=== PATIENT | female | born 1960 | race Caucasian/White ===

== ENCOUNTER 2017-03-16 08:07 | Day surgery (SDC) | payer BC ==
[2017-03-11 12:04] VITALS: BMI 25.7
[2017-03-16] MEDS ORDERED: PROPOFOL 20 ML ONE ×2 (08:23)
[2017-03-16] MEDS ORDERED: LIDOCAINE HCL/PF 2% SDV 5ML VIAL ONE (08:24)
[2017-03-16 10:44] VITALS: TEMP 97.9
[2017-03-16 11:08] VITALS: BP 119/72; PULSE 62
--- NOTE | 2017-03-19 16:29 | PATH ---
Surgical Pathology Report Patient Name: BRANT STARKS [facility] [place]. Rec. #: [id number] /Age/Gender: 1960 (Age: 56) / F Account: [id number] Location: [facility]-ENDOSCOPY Taken: 03/16/2017 Received: 03/16/2017 Reported: 03/19/2017 Physicians: Davin Starks M.D. Specimen(s) Received A: BX DUODENUM B: BX ANTRUM C: BX ESOPHAGUS D: BX DISTAL LEFT COLON (50CM) Clinical History Barretts esophagus, history of colonic polyp Rule out celiac disease, rule out H. Pylori, rule out Velazquez's esophagus, colonic polyp Final Diagnosis A. DUODENUM, BIOPSY: DUODENAL MUCOSA WITH NO PATHOLOGIC FINDINGS. Note: Features suggestive of celiac disease are not identified in this biopsy. B. ANTRUM, BIOPSY: MILD CHRONIC GASTRITIS. IMMUNOSTAIN IS NEGATIVE FOR H. PYLORI ORGANISMS. C. 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 (SEE NOTE) Note: Case reviewed in intradepartmental consultation with consensus on diagnosis. Case discussed with Dr. Davin Starks on 03/19/17. D. DISTAL LEFT COLON (50CM), BIOPSY: TUBULAR ADENOMA. Electronically Signed Macey Taveras M.D. Gross Description A. Received in formalin, labeled "duodenum" are 2 house, irregular portions of soft tissue averaging 0.4 cm. in greatest dimension. The specimens are submitted in toto in one cassette. B. Received in formalin, labeled "antrum" are 2 house, irregular portions of soft tissue measuring 0.2 and 0.3 cm. in greatest dimension. The specimens are submitted in toto in one cassette. C. Received in formalin, labeled "esophagus" are 3 house, irregular portions of soft tissue ranging from 0.2-0.3 cm. in greatest dimension. The specimens are submitted in toto in one cassette. D. Received in formalin, labeled "distal left (50 cm)" is a house, irregular portion of soft tissue measuring 0.2 cm. in greatest dimension. The specimen is submitted in toto in one cassette. 03/17/201703/17/2017
== END 2017-03-16 11:10 | disposition home or self-care (01) ==
LOC: FASU-ENDO 08:07
PROVIDERS: ATTEND Internal Medicine Gastroenterology
PROC: 0DB48ZX Excision of Esophagogastric Junction, Via Natural or Artificial Opening Endoscopic, Diagnostic (ICD-10-PCS; 2017-03-16)
PROC: 0DBM8ZX Excision of Descending Colon, Via Natural or Artificial Opening Endoscopic, Diagnostic (ICD-10-PCS; principal; 2017-03-16 09:56)
PROC: 0DB98ZX Excision of Duodenum, Via Natural or Artificial Opening Endoscopic, Diagnostic (ICD-10-PCS; 2017-03-16 09:56)
PROC: 0DB68ZX Excision of Stomach, Via Natural or Artificial Opening Endoscopic, Diagnostic (ICD-10-PCS; 2017-03-16 09:56)
DX: Z86.010 Personal history of colon polyps (principal); K57.30 Diverticulosis of large intestine without perforation or abscess without bleeding; D12.4 Benign neoplasm of descending colon; K29.50 Unspecified chronic gastritis without bleeding; K22.70 Barrett's esophagus without dysplasia
CPT/HCPCS: 88305-TC; 88342-TC

== ENCOUNTER 2017-07-27 07:32 | Day surgery (SDC) | payer BC ==
[2017-07-22 15:24] VITALS: BMI 27.6
[2017-07-27] MEDS ORDERED: PROPOFOL 20 ML ONE (07:36)
[2017-07-27] MEDS ORDERED: LIDOCAINE HCL/PF 2% SDV 5ML VIAL ONE (07:37)
[2017-07-27 09:50] VITALS: TEMP 97.5
[2017-07-27 10:13] VITALS: BP 115/78; PULSE 61
--- NOTE | 2017-07-29 15:40 | PATH ---
Surgical Pathology Report Patient Name: BRANT STARKS [facility]. Rec. #: [id number] /Age/Gender: 1960 (Age: 57) / F Account: [id number] Location: [facility]-ENDOS[facility] Taken: 07/27/2017 Received: 07/27/2017 Reported: 07/29/2017 Physicians: Davin Starks M.D. Specimen(s) Received A: BX ANTRUM B: BX GE JUNCTION Clinical History Preoperative diagnosis: Velazquez's esophagus Postoperative diagnosis: Rule out dysplasia, gastritis Final Diagnosis A. ANTRUM, BIOPSY: MILD CHRONIC GASTRITIS. IMMUNOSTAIN IS NEGATIVE FOR H. PYLORI ORGANISMS. B. GE JUNCTION, BIOPSY: COLUMNAR MUCOSA WITH INTESTINAL METAPLASIA, COMPATIBLE WITH VELAZQUEZ'S ESOPHAGUS IN THE APPROPRIATE ENDOSCOPIC SETTING. NEGATIVE FOR DYSPLASIA. MILDLY HYPERPLASTIC ESOPHAGEAL (SQUAMOUS) MUCOSA. Electronically Signed Macey Taveras M.D. Gross Description A. Received in formalin, labeled "antrum" is a house, irregular portion of soft tissue measuring 0.3 cm. in greatest dimension. The specimen is submitted in toto in one cassette. B. Received in formalin, labeled "GE junction" are 4 house, irregular portions of soft tissue ranging from 0.2-0.7 cm. in greatest dimension. The specimens are submitted in toto in one cassette. 07/28/2017 [place]07/28/2017
== END 2017-07-27 10:10 | disposition home or self-care (01) ==
LOC: FASU-ENDO 07:32
PROVIDERS: ATTEND Internal Medicine Gastroenterology
PROC: 0DB48ZX Excision of Esophagogastric Junction, Via Natural or Artificial Opening Endoscopic, Diagnostic (ICD-10-PCS; principal; 2017-07-27 09:26)
PROC: 0DB68ZX Excision of Stomach, Via Natural or Artificial Opening Endoscopic, Diagnostic (ICD-10-PCS; 2017-07-27 09:26)
DX: K22.70 Barrett's esophagus without dysplasia (principal); K29.50 Unspecified chronic gastritis without bleeding
CPT/HCPCS: 82962

== ENCOUNTER 2018-10-06 07:41 | Day surgery (SDC) | payer BC ==
[2018-09-30 13:10] VITALS: BMI 23.7
[2018-10-06] MEDS ORDERED: PROPOFOL 20 ML ONE ×2 (08:12)
[2018-10-06] MEDS ORDERED: LIDOCAINE HCL/PF 2% SDV 5ML VIAL ONE (08:12)
[2018-10-06 09:11] VITALS: TEMP 98.2
[2018-10-06 09:38] VITALS: BP 110/74; PULSE 70
--- NOTE | 2018-10-08 17:17 | PATH ---
Surgical Pathology Report Patient Name: BRANT STARKS [facility] Rec. #: [id number] /Age/Gender: 1960 (Age: 58) / F Account: [id number] Location: [facility] Taken: 10/06/2018 Received: 10/07/2018 Reported: 10/08/2018 Physicians: Davin Starks M.D. Specimen(s) Received A: DISTAL ESOPHAGUS B: GASTRIC ANTRUM Clinical History Velazquez's, screening, history of polyps Postoperative diagnosis: Mild gastritis, rule out dysplasia, normal colon Final Diagnosis A. DISTAL ESOPHAGUS, BIOPSY: VELAZQUEZ'S ESOPHAGUS WITH LOW GRADE DYSPLASIA. Intradepartmental case reviewed with concordance on diagnosis. B. GASTRIC ANTRUM, BIOPSY: GASTRIC MUCOSA WITH CHRONIC GASTRITIS. IMMUNOSTAIN FOR H. PYLORI IS NEGATIVE. NEGATIVE FOR INTESTINAL METAPLASIA. Electronically Signed Jorge A Rivera M.D. Gross Description A. Received in formalin, labeled "biopsy distal esophagus" are 6 house, irregular portions of soft tissue ranging from 0.2-0.4 cm. in greatest dimension. The specimens are submitted in toto in one cassette. B. Received in formalin, labeled "biopsy gastric antrum" are 2 house, irregular portions of soft tissue averaging 0.3 cm. in greatest dimension. The specimens are submitted in toto in one cassette. 10/07/2018 [facility]10/07/2018
== END 2018-10-06 09:40 | disposition home or self-care (01) ==
LOC: FASU-ENDO 07:41
PROVIDERS: ATTEND Internal Medicine Gastroenterology
PROC: 0DB68ZX Excision of Stomach, Via Natural or Artificial Opening Endoscopic, Diagnostic (ICD-10-PCS; 2018-10-06)
PROC: 0DB38ZX Excision of Lower Esophagus, Via Natural or Artificial Opening Endoscopic, Diagnostic (ICD-10-PCS; 2018-10-06)
PROC: 0DJD8ZZ Inspection of Lower Intestinal Tract, Via Natural or Artificial Opening Endoscopic (ICD-10-PCS; principal; 2018-10-06 08:00)
PROC: 0DB48ZX Excision of Esophagogastric Junction, Via Natural or Artificial Opening Endoscopic, Diagnostic (ICD-10-PCS; 2018-10-06 08:00)
DX: Z86.010 Personal history of colon polyps (principal); K22.710 Barrett's esophagus with low grade dysplasia; K29.50 Unspecified chronic gastritis without bleeding
CPT/HCPCS: 82962; 88305-TC; 88342-TC

== ENCOUNTER 2022-09-29 06:09 | Day surgery (SDC) | payer BC, OTHER ==
[2022-09-23 12:37] VITALS: BMI 24.3
[~2022-09-29 06:09] MED LIST: HEPARIN NA (PORCINE) 5,000 UNITS/ML 1ML VIAL SQ ONE; LACTATED RINGERS SOLUTION 1,000 ML IV SCH; ONDANSETRON 4 MG/2 ML VIAL IVPUSH PRN; PROMETHAZINE HCL 25 MG/1 ML VIAL IVPB PRN; oxyCODONE HCL 5 MG TABLET PO PRN
[2022-09-29] MEDS ORDERED: CLINDAMYCIN PHOSPHATE 900 MG/6 ML VIAL IVPB ONE (07:07)
[2022-09-29] MEDS ORDERED: LIDOCAINE HCL/PF 2% SDV 5ML VIAL ONE (07:08)
[2022-09-29] MEDS ORDERED: PROPOFOL 40 ML ONE (07:08)
[2022-09-29] MEDS ORDERED: SUCCINYLCHOLINE CHLORIDE 200 MG/10 ML SYRINGE ONE (07:10)
[2022-09-29] MEDS ORDERED: ROCURONIUM BROMIDE 50 MG/5 ML SYRINGE ONE (07:10)
[2022-09-29] MEDS ORDERED: MIDAZOLAM HCL 2 MG/2 ML SINGLE DOSE VIAL ONE (07:11)
[2022-09-29] MEDS ORDERED: DEXAMETHASONE SOD PHOSPHATE 4 MG/1 ML VIAL ONE (07:12)
[2022-09-29] MEDS ORDERED: KETOROLAC TROMETHAMINE 30 MG/1 ML VIAL ONE (07:14)
[2022-09-29] MEDS ORDERED: NITROGLYCERIN 2% OINTMENT - 1GM PACKET TD ONE (07:20)
[2022-09-29] MEDS ORDERED: EPINEPHrine/PF 1 MG/1 ML (1:1,000) AMPULE ONE (07:20)
[2022-09-29] MEDS ORDERED: BACITRACIN ZINC 15 GM TUBE TOPICAL OINTMENT ONE (07:21)
[2022-09-29] MEDS ORDERED: BUPIVACAINE HCL/PF 0.25% (2.5MG/ML) 10 ML VIAL ONE (07:21)
[2022-09-29] MEDS ORDERED: BUPIVACAINE LIPOSOME/PF (EXPAREL) 266 MG/20 ML VIAL ONE (07:46)
[2022-09-29] MEDS ORDERED: ACETAMINOPHEN INJECTION 100 ML IVPB ONE ×2 (07:47→13:22)
[2022-09-29] MEDS ORDERED: HEPARIN NA (PORCINE) 5,000 UNITS/ML 1ML VIAL ONE (07:54)
[2022-09-29] MEDS: HEPARIN NA (PORCINE) 5,000 UNITS/ML 1ML VIAL SQ ONE ×2 (07:56→07:59)
[2022-09-29] MEDS ORDERED: ceFAZolin SODIUM 1 GM VIAL ONE (08:09)
[2022-09-29] MEDS ORDERED: GLYCOPYRROLATE 0.2 MG/1 ML VIAL ONE ×2 (08:28→08:29)
[2022-09-29] MEDS ORDERED: NEOSTIGMINE METHYLSULFATE 0.5 MG/1 ML - 10 ML MDV ONE (08:28)
[2022-09-29] MEDS ORDERED: ESMOLOL HCL 100,000 MCG/10 ML VIAL ONE (11:09)
[2022-09-29] MEDS: INSULIN SLIDING SCALE (NOVOLOG) 1 VIAL SQ SCH ×3 (11:59→22:01)
[2022-09-29] MEDS ORDERED: LACTATED RINGERS SOLUTION 1,000 ML IV SCH (12:00)
[2022-09-29] MEDS: ACETAMINOPHEN 1000 MG/100 ML BAG IVPB PRN (13:00)
[2022-09-29] MEDS: CEFAZOLIN 1 GM in SODIUM CHLORIDE 50 ML IVPB SCH ×2 (14:16→21:35)
[2022-09-29] MEDS: ONDANSETRON 4 MG/2 ML VIAL IVPB PRN (15:51)
[2022-09-29] MEDS: oxyCODONE HCL 5 MG TABLET PO PRN (16:03)
[2022-09-30 00:10] VITALS: RESP 18
[2022-09-30] MEDS: CEFAZOLIN 1 GM in SODIUM CHLORIDE 50 ML IVPB SCH ×2 (03:19→08:47)
[2022-09-30] MEDS: ACETAMINOPHEN 1000 MG/100 ML BAG IVPB PRN (05:16)
[2022-09-30] MEDS: oxyCODONE HCL 5 MG TABLET PO PRN (05:16)
[2022-09-30 06:08] VITALS: BP 125/66; PULSE 75; TEMP 99.2
[2022-09-30] MEDS: ONDANSETRON 4 MG/2 ML VIAL IVPB PRN (06:59)
[2022-09-30] MEDS: INSULIN SLIDING SCALE (NOVOLOG) 1 VIAL SQ SCH (07:37)
[2022-09-30] MEDS ORDERED: HEPARIN NA (PORCINE) 5,000 UNITS/ML 1ML VIAL SQ SCH (08:00)
== END 2022-09-30 09:27 | disposition home or self-care (01) ==
LOC: FASU 06:09 → FASUSAT 06:09 → FM/S 13:35 → FASUSAT 09-30 09:27
PROVIDERS: ATTEND Plastic Surgery
PROC: 0W0F0ZZ Alteration of Abdominal Wall, Open Approach (ICD-10-PCS; principal; 2022-09-29 08:30)
PROC: 0J083ZZ Alteration of Abdomen Subcutaneous Tissue and Fascia, Percutaneous Approach (ICD-10-PCS; 2022-09-29 08:30)
DX: M95.8 Other specified acquired deformities of musculoskeletal system (principal)
CPT/HCPCS: 82962; 94760; J1644

== ENCOUNTER 2023-08-29 21:34 | Emergency (ER) | payer OTHER ==
[2023-08-29 21:40] VITALS: BP 125/72; PULSE 69; RESP 16; TEMP 98.1; BMI 24.3
[2023-08-29] MEDS ORDERED: SILVER NITRATE 75% APPLIC STCK 1 PKT EACH ONE ×3 (21:50→22:31)
== END 2023-08-29 22:36 | disposition home or self-care (01) ==
LOC: FER 21:34
PROC: 093K7ZZ Control Bleeding in Nasal Mucosa and Soft Tissue, Via Natural or Artificial Opening (ICD-10-PCS; principal; 2023-08-29)
DX: R04.0 Epistaxis (principal)
CPT/HCPCS: 99283-25

== ENCOUNTER 2024-02-17 07:18 | Day surgery (SDC) | payer OTHER ==
[2024-02-15 14:35] VITALS: BMI 25.4
[2024-02-17] MEDS ORDERED: PROPOFOL 160 ML ONE (07:39)
[2024-02-17 08:52] VITALS: RESP 16; TEMP 97.1
[2024-02-17 09:03] VITALS: BP 98/60; PULSE 70
== END 2024-02-17 09:07 | disposition home or self-care (01) ==
LOC: FASU-ENDO 07:18
PROVIDERS: ATTEND Internal Medicine Gastroenterology
PROC: 0DJD8ZZ Inspection of Lower Intestinal Tract, Via Natural or Artificial Opening Endoscopic (ICD-10-PCS; principal; 2024-02-17 08:26)
DX: Z12.11 Encounter for screening for malignant neoplasm of colon (principal); K57.30 Diverticulosis of large intestine without perforation or abscess without bleeding
CPT/HCPCS: 82962